=== PATIENT | female | born 1940 | race Caucasian/White ===

== ENCOUNTER → 2018-03-26 16:59 | Outpatient (CLI) | payer MEDICARE ==
[2018-03-26 18:39] LABS: APPEARANCE HAZY (CLEAR); BILIRUBIN NEGATIVE (NEGATIVE); COLOR YELLOW (YELLOW); GLUCOSE NEGATIVE (NEGATIVE); KETONE NEGATIVE (NEGATIVE); NITRITE POSITIVE (NEGATIVE); PROTEIN TRACE mg/dL (NEGATIVE); UROBILINOGEN NORMAL (NORMAL)
[2018-03-26 18:40] LABS: BACTERIA MANY /hpf (NONE SEEN); EPITHELIAL CELLS 0-5 /hpf (0-5); RED CELLS - URINE OCC /hpf (0-5); WHITE CELLS - URINE >50 /hpf (0-5)
== END | disposition home or self-care (01) ==
LOC: D.LABREF 16:59
PROVIDERS: Emergency Medicine
DX: R30.0 Dysuria (principal); R82.99 Other abnormal findings in urine

== ENCOUNTER → 2018-03-28 18:05 | Outpatient (CLI) | payer MEDICARE | END | disposition home or self-care (01) | LOC: D.LABREF 18:05 | DX: N39.0 Urinary tract infection, site not specified (principal) ==

== ENCOUNTER → 2018-05-07 15:45 | Outpatient (CLI) | payer MEDICARE ==
[2018-05-07 16:46] LABS: APPEARANCE CLEAR (CLEAR); BACTERIA NONE SEEN /hpf (NONE SEEN); BILIRUBIN NEGATIVE (NEGATIVE); COLOR YELLOW (YELLOW); EPITHELIAL CELLS NSEEN /hpf (0-5); GLUCOSE NEGATIVE (NEGATIVE); KETONE NEGATIVE (NEGATIVE); NITRITE NEGATIVE (NEGATIVE); PROTEIN NEGATIVE (NEGATIVE); RED CELLS - URINE NONE SEEN /hpf (0-5); URIC ACID CRYSTALS 0-5 /hpf (NONE SEEN); UROBILINOGEN NORMAL (NORMAL); WHITE CELLS - URINE 0-5 /hpf (0-5)
== END | disposition home or self-care (01) ==
LOC: D.LDO 15:45 → D.LABREF 15:45
PROVIDERS: Emergency Medicine
DX: Z87.440 Personal history of urinary (tract) infections (principal)